=== PATIENT | female | born 1990 | race African-American/Black ===

== ENCOUNTER 2017-04-26 08:32 | Emergency (ER) | payer BC, MEDICAID ==
[~2017-04-26] VITALS: Ht 154.9 cm; Wt 81.0 kg
[2017-04-26] MEDS ORDERED: NIFEDIPINE XL 30MG TAB PO ONE (09:30)
[2017-04-26] MEDS ORDERED: TRAMADOL 50MG TABLET PO ONE (09:30)
[2017-04-26 10:09] LABS: CLARITY URINE CLEAR (CLEAR); COLOR URINE YELLOW (YELLOW); GLUCOSE URINE NEGATIVE (NEGATIVE); KETONES URINE NEGATIVE (NEGATIVE); LEUKOCYTE ESTERASE URINE NEGATIVE (NEGATIVE); NITRITE URINE NEGATIVE (NEGATIVE); OCCULT BLOOD URINE NEGATIVE (NEGATIVE); PH URINE 6.5 (4.5-8.0); PROTEIN URINE NEGATIVE (NEGATIVE); UROBILINOGEN URINE 0.2 E.U./dL (0.2-1.0)
[2017-04-26] MEDS ORDERED: HYDRALAZINE 20MG/ML VIAL IV ONE (10:45)
[2017-04-26] MEDS ORDERED: ONDANSETRON HCL 4MG/2ML VIAL IV ONE (10:45)
[2017-04-26] MEDS ORDERED: MORPHINE SULFATE 4 MG/ML CPJ (NOT FOR IM USE) IV ONE (10:45)
[2017-04-26 12:04] VITALS: BP 152/95
[2017-04-26 12:14] LABS: *AMPHETAMINES SCREEN URINE NEGATIVE (NEGATIVE); *BARBITURATES SCREEN URINE NEGATIVE (NEGATIVE); *COCAINE SCREEN URINE NEGATIVE (NEGATIVE); CANNABINOID URINE SCREEN NEGATIVE (NEGATIVE); METHADONE URINE SCREEN NEGATIVE (NEGATIVE); PHENCYCLIDINE URINE SCREEN NEGATIVE (NEGATIVE)
[2017-04-26 12:16] LABS: *BENZODIAZEPINES SCREEN URINE PRESUMTIVE POSITIVE (NEGATIVE); OPIATES URINE SCREEN PRESUMTIVE POSITIVE (NEGATIVE)
== END 2017-04-26 12:20 | disposition home or self-care (01) ==
LOC: ER 08:53
DX: R33.8 Other retention of urine (principal)
CPT/HCPCS: 51702; 80305; 81003; 81025; 87086; 96374; 96375; 99284; J0360; J2270; J2405